=== PATIENT | male | born 1940 | race Caucasian/White ===

== ENCOUNTER 2016-05-28 15:38 | Emergency (ER) | payer OTHER ==
[~2016-05-28] VITALS: Ht 188 cm; Wt 76.0 kg
[2016-05-28] MEDS ORDERED: FAMCICLOVIR500 MG PO (17:53)
[2016-05-28] MEDS ORDERED: PREDNISONE10 MG PO (17:53)
[2016-05-28 18:42] VITALS: BP 149/104
== END 2016-05-28 18:43 | disposition home or self-care (01) ==
LOC: EME 15:38
DX: B02.9 Zoster without complications (principal); H61.21 Impacted cerumen, right ear; I10 Essential (primary) hypertension; R73.03 Prediabetes; Z96.642 Presence of left artificial hip joint
CPT/HCPCS: 99281; 99284

== ENCOUNTER 2016-11-23 13:28 | Emergency (ER) | payer OTHER ==
[~2016-11-23] VITALS: Ht 185.4 cm; Wt 75.0 kg
[~2016-11-23 13:28] MED LIST: FAMCICLOVIR500 MG PO; PREDNISONE10 MG PO
[2016-11-23 15:29] LABS: HEMATOCRIT 43.7 % (38.0-50.0); MCH 28.7 PG (29.0-34.0); MCHC 34.1 G/DL (30.0-36.0); MCV 84.2 FL (86-99); MEAN PLAT.VOLUME 9.3 uM^3 (9.0-12.4); PLATELET COUNT 249 K/uL (156-360); RBC DIS.WIDTH-CV 12.2 % (11.8-14.6); RBC DIS.WIDTH-SD 37.3 % (39-53); RED BLOOD COUNT 5.19 M/uL (4.00-5.50); WHITE BLOOD COUNT 10.9 K/uL (4.1-10.2)
[2016-11-23 15:37] LABS: CHLORIDE 100 mEq/L (99-109); POTASSIUM 4.2 mEq/L (3.7-5.4); SODIUM 133 mEq/L (136-147)
[2016-11-23 15:39] LABS: GLUCOSE 98 mg/dL (70-99)
[2016-11-23 15:40] LABS: ANION GAP 11 MEQ/L (2-14)
[2016-11-23 15:41] LABS: TOTAL BILIRUBIN 0.5 mg/dL (0.0-1.0)
[2016-11-23 15:42] LABS: ALKALINE PHOSPHATASE 106 IU/L (3-129); GFR ESTIMATE (CALCULATED) 52 mL/min/
[2016-11-23 15:44] LABS: UREA NITROGEN (BUN) 23 mg/dL (9-23)
[2016-11-23 15:46] LABS: LIPASE 36 U/L (1.0-51.0)
[2016-11-23 15:49] LABS: TROP-I INTERPRETATION NEGATIVE; TROPONIN-I < 0.01 ng/mL (0.0-0.30)
[2016-11-23 16:13] LABS: ADD MIUA? NO; BILIRUBIN NEGATIVE; BLOOD NEGATIVE; COLOR YELLOW ((YELLOW)); GLUCOSE (STRIP) NEGATIVE; KETONES NEGATIVE; LEUKOCYTES NEGATIVE; NITRITE NEGATIVE; PROTEIN (STRIP) NEGATIVE; SPECIFIC GRAVITY 1.012 (1.000-1.030); UROBILINOGEN 0.2 MG/DL (0.2-1.0)
[2016-11-23 18:37] VITALS: BP 128/84
== END 2016-11-23 18:37 | disposition home or self-care (01) ==
LOC: EME 13:28
PROVIDERS: Nurse Practitioner Family
DX: E86.0 Dehydration (principal); I10 Essential (primary) hypertension
CPT/HCPCS: 80053; 81003; 83605; 83690; 84484; 85027; 99281; 99284; J7030